=== PATIENT | female | born 1995 ===

== ENCOUNTER 2019-12-04 12:08 | Emergency (ER) | payer SELFPAY ==
[2019-12-04 12:40] VITALS: BP 111/55
--- NOTE | 2019-12-04 12:44 | Emergency Department Report ---
Chief Complaint: Skin/Abscess/Foreign Body Stated Complaint: BLISTER ON LIP Time Seen by Provider: 12/04/19 12:37 - HPI History of Present Illness: 24 y o female presents to ED cc of 2 upper lip blisters x 4 days she states no swelling or injuries states she has been applying vaseline to th elips She denies fever,chills,sob or any other sx - ROS Review of Systems: As noted in HPI - Exam Physical Exam: GENERAL: Alert and oriented x3, no apparent distress, Normal Gait, atraumatic. HEAD: Head is normocephalic and a-traumatic. MOUTH:Mouth is well hydrated and without lesions. Tonsils nonerythematous or swollen, Uvula midline, Tongue not elevated. Mucous membranes are moist. Upper lip blister x2, nonerythematous, no swelling SKIN: Warm and dry, No lesions, No ulceration or induration present. MSE screening note: Focused history and physical exam performed. Due to findings the following was ordered: ED Disposition for MSE Clinical Impression: Cold sore Disposition: MED SCREENING EXAM-LEFT Is pt being admited?: No Does the pt Need Aspirin: No Condition: Stable Instructions: Oral Herpes Simplex Virus Infections (ED), Blister (ED) Additional Instructions: Make sure to follow up with the primary care physician as discussed. Use BLISTEX on your lip If you have any worsening symptoms or develop new symptoms please return to ED immediately. Referrals: [facility] [Outside] - 3-5 Days [facility] [Outside] - 3-5 Days [facility] [Outside] - 3-5 Days Forms: Work/School Release Form(ED) Time of Disposition: 12:47
== END 2019-12-04 13:16 | disposition left against medical advice (07) ==
LOC: ED 12:08
DX: B00.1 Herpesviral vesicular dermatitis (principal)
CPT/HCPCS: 99281